=== PATIENT | female | born 1970 | race Caucasian/White ===

== ENCOUNTER → 2017-12-28 | Outpatient (CLI) | payer BC ==
--- NOTE | 2017-12-28 10:59 | Diagnostic Imaging Report ---
PROCEDURE: CT urinary tract, rule out kidney stone. TECHNIQUE: Multiple contiguous axial images were obtained through the abdomen and pelvis without the use of intravenous contrast. INDICATION: Left flank pain, urinary tract infection. COMPARISON: None. FINDINGS: There are tiny subcentimeter nodules in both lung bases. At least 2 on the right and one on the left. Recommend full CT chest on a nonemergent basis. There is a benign adenoma in the right adrenal gland measuring approximately 7 mm. Small hiatal hernia is present. Multiple gallstones are seen without cholecystitis. Both kidneys have a normal appearance. There is no hydronephrosis or renal calculi. The spleen, liver, pancreas, left adrenal glands, vascular structures and bowel are normal. The uterus is surgically absent. There is no inflammatory process. Distal ureters and urinary bladder are normal. Osseous structures are age-appropriate. IMPRESSION: 1. No renal calculi or hydronephrosis. 2. Cholelithiasis without cholecystitis. 3. Tiny subcentimeter pulmonary nodules. Recommend nonemergent CT chest. 4. Hiatal hernia. 5. Surgically absent uterus. Dictated by: Dictated on workstation # [id number]
== END ==
LOC: RAD 10:04
PROVIDERS: ATTEND Urology
DX: N39.0 Urinary tract infection, site not specified (principal); K80.20 Calculus of gallbladder without cholecystitis without obstruction; K44.9 Diaphragmatic hernia without obstruction or gangrene; Z90.710 Acquired absence of both cervix and uterus
CPT/HCPCS: 74176

== ENCOUNTER → 2018-01-07 | Outpatient (CLI) | payer BC ==
[~2018-01-07] MED LIST: CATHETER FLUSH 10 ML SYR IV PRN; IOHEXOL 350 MG/ML 100 ML (OMNIPAQUE 350) VIAL IV ONE; NS 100 ML (IVPB) BAG IV ONE
--- NOTE | 2018-01-07 11:46 | Diagnostic Imaging Report ---
PROCEDURE: CT chest with contrast only. TECHNIQUE: Multiple contiguous axial images were obtained through the chest after administration of intravenous contrast. INDICATION: Pulmonary nodules, followup. Comparison is made with recent CT abdomen and pelvis from 12/28/2017. No axillary lymphadenopathy is detected. No hilar or mediastinal lymphadenopathy is identified. No pericardial or pleural fluid is detected. Parenchymal violation does show a tiny subpleural nodule posterolateral right lower lobe measuring 3 mm, image 32. Second nodule just inferior to this in the subpleural location measures 6 mm. There are 2 tiny nodules posterior lateral left lower lobe image 40 largest 4 mm in size. No other pulmonary nodules are identified. Impression: Tiny bilateral lower lobe pulmonary nodules, indeterminate. Followup in 4-6 months could be performed to confirm stability. Dictated by: Dictated on workstation # [id number]
== END ==
LOC: RAD 09:55
PROVIDERS: ATTEND Urology
DX: R91.8 Other nonspecific abnormal finding of lung field (principal)
CPT/HCPCS: 71260

== ENCOUNTER 2018-01-15 06:04 | Outpatient (CLI) | payer BC ==
[~2018-01-15] VITALS: Ht 170.2 cm; Wt 126.1 kg
[2018-01-15] MEDS ORDERED: OMEP20TA33 PO (12:18)
[2018-01-15] MEDS ORDERED: ZOLP5TAB7 PO (12:18)
[2018-01-15] MEDS ORDERED: CETI10TA20 PO (12:18)
[2018-01-17] MEDS ORDERED: DOCU-143 PO (11:52)
[2018-01-17] MEDS ORDERED: ACHD5005 PO (11:52)
== END 2018-01-15 13:00 ==
LOC: PREOP 06:04
PROVIDERS: ATTEND Surgery
DX: Z01.818 Encounter for other preprocedural examination (principal); K80.20 Calculus of gallbladder without cholecystitis without obstruction

== ENCOUNTER 2018-01-17 08:04 | Day surgery (SDC) | payer BC ==
[~2018-01-17] VITALS: Ht 170.2 cm; Wt 126.1 kg
[~2018-01-17 08:04] MED LIST changes: -CATHETER FLUSH 10 ML SYR IV PRN; +CETI10TA20 PO; -IOHEXOL 350 MG/ML 100 ML (OMNIPAQUE 350) VIAL IV ONE; -NS 100 ML (IVPB) BAG IV ONE; +OMEP20TA33 PO; +ZOLP5TAB7 PO
--- NOTE | 2018-01-17 08:20 | Progress Note-Pre Operative ---
Pre-Operative Progress Note H&P Reviewed The H&P was reviewed, patient examined and no changes noted. Date Seen by Provider: Jan 17, 2018 Time Seen by Provider: 08:19 Date H&P Reviewed: Jan 17, 2018 Time H&P Reviewed: 08:20 Pre-Operative Diagnosis: symptomatic cholelithiasis MIRA MENDEZ DO Jan 17, 2018 08:20
[2018-01-17] MEDS ORDERED: CATHETER FLUSH 10 ML SYR IV PRN (08:30)
[2018-01-17] MEDS ORDERED: ceFAZolin 2 GM/50 ML PRE-MIX IVPB IV ONE (08:30)
[2018-01-17] MEDS ORDERED: LACTATED RINGERS 1,000 ML IV PRN (08:36)
[2018-01-17 08:38] LABS: BASOPHILS % (AUTO) 1 % (0-10); EOSINOPHILS # (AUTO) 0.2 10^3/uL (0.0-0.3); EOSINOPHILS % (AUTO) 2 % (0-10); HEMATOCRIT 43 % (35-52); HEMOGLOBIN 14.7 G/DL (11.5-16.0); LYMPHOCYTES # (AUTO) 1.9 X 10^3 (1.0-4.0); LYMPHOCYTES % (AUTO) 30 % (12-44); MEAN CORPUSCULAR HEMOGLOBIN 29 PG (25-34); MEAN CORPUSCULAR HGB CONC 34 G/DL (32-36); MEAN CORPUSCULAR VOLUME 86 FL (80-99); MEAN PLATELET VOLUME 10.2 FL (7.4-10.4); MONOCYTES # (AUTO) 0.5 X 10^3 (0.0-1.0); MONOCYTES % (AUTO) 8 % (0-12); NEUTROPHILS # (AUTO) 3.9 X 10^3 (1.8-7.8); NEUTROPHILS % (AUTO) 60 % (42-75); PLATELET COUNT 346 10^3/uL (130-400); RED BLOOD COUNT 5.05 10^6/uL (4.35-5.85); RED CELL DISTRIBUTION WIDTH 13.4 % (10.0-14.5); WHITE BLOOD COUNT 6.6 10^3/uL (4.3-11.0)
[2018-01-17 08:39] VITALS: BP 141/94
[2018-01-17] MEDS ORDERED: ceFAZolin 2 GM IV Premixed 50 ML IV ONE (08:45)
[2018-01-17] MEDS ORDERED: fentaNYL INJECTION 100 MCG/2 ML AMP ONE ×2 (09:25→11:13)
[2018-01-17] MEDS ORDERED: MIDAZOLAM 2 MG/2 ML (VERSED) VIAL ONE (09:25)
[2018-01-17] MEDS ORDERED: FAMOTIDINE 20MG/2ML IV (PEPCID) ONE (09:29)
[2018-01-17] MEDS ORDERED: SEVOFLURANE (ULTANE) 15 ML INHAL SOLN ONE ×6 (09:46→11:53)
[2018-01-17] MEDS ORDERED: ONDANSETRON 4 MG/2 ML (SDV) Z0FRAN ONE (09:46)
[2018-01-17] MEDS ORDERED: LIDOCAINE PF 2% 5 ML (XYLOCAINE) VIAL ONE (09:46)
[2018-01-17] MEDS ORDERED: proPOfol 200 MG/20 ML (DIPRIVAN) VIAL IV ONE (09:46)
[2018-01-17] MEDS ORDERED: ROCURONIUM 50 MG/5 ML (ZEMURON) VIAL IV ONE (09:46)
[2018-01-17] MEDS ORDERED: DEXAMETHASONE 10 MG/ML (DECADRON) 1 ML VIAL ONE (09:46)
[2018-01-17] MEDS ORDERED: BUPIVACAINE 0.5% 30 ML (SENSORCAINE) VIAL ONE (10:00)
[2018-01-17] MEDS ORDERED: LIDOCAINE 1% INJ 20 ML (XYLOCAINE) VIAL ONE (10:00)
--- NOTE | 2018-01-17 11:51 | Progress Note-Post Operative ---
Post-Operative Progess Note Surgeon (s)/Paint Striping Machine Operator (s) Surgeon MIRA MENDEZ DO Paint Striping Machine Operator: Dr. Morrissey Pre-Operative Diagnosis symptomatic cholelithiasis Post-Operative Diagnosis same Procedure & Operative Findings Date of Procedure 01/17/18 Procedure Performed/Findings lap noe c ioc Anesthesia Type gen Estimated Blood Loss Estimated blood loss (mL): min Specimens/Packing Specimens Removed gallbladder MIRA MENDEZ DO Jan 17, 2018 11:51
[2018-01-17] MEDS ORDERED: DOCU-143 PO (11:52)
[2018-01-17] MEDS ORDERED: ACHD5005 PO (11:52)
--- NOTE | 2018-01-17 11:53 | Discharge Inst-Simple/Standard ---
Discharge Inst-Standard Discharge Medications New, Converted or Re-Newed RX: RX on Chart Patient Instructions/Follow Up Plan of Care/Instructions/FU: 2 weeks Pura Activity as Tolerated: No Discharge Diet: Regular Diet Other Inst to Patient Follow up Appt: Make appointment for 2 weeks. Instructions: No lifting greater than 10 pounds. No strenuous activity. May shower in 24 hours, no tub bath or soaking. Use incentive spirometer at home as directed. No Smoking Skin/Wound Care: You have special glue over incisions it will fall off on its own. Symptoms to Report: Appetite Changes, Extremity Discoloration, Numbness/Tingling, Swelling Increased , Bleeding Excessive, Eyesight Changes, Pain Increased, Urine Color Change, Constipation(Persistent), Fever over 101 degree F, Pain/Pressure in chest, Urinating Difficulty, Cough Up/Vomit Blood, Heart Beat Irreg/Pounding, Pain/ Pressure in jaw, Vaginal Bleeding Increase, Cramps in feet or legs, Lightheadedness, Pain/Pressure in shoulder, Diarrhea(Persistent), Memory Changes Suddenly, Questions/Concerns, Weight gain consecutive days, Dizziness/ Fainting, Nausea/Vomiting, Shortness of Breath, Weight gain over 2 pounds. If eyes or skin turn yellow notify physician. If questions or concerns contact your physician Or seek help at emergency department. MIRA MENDEZ DO Jan 17, 2018 11:53
[2018-01-17] MEDS ORDERED: HYDROcodone/APAP 5 MG/325 MG (LORTAB) TAB PO PRN (12:00)
--- NOTE | 2018-01-17 12:13 | Diagnostic Imaging Report ---
INDICATION: Laparoscopic cholecystectomy with intraoperative cholangiogram. PROCEDURE: Fluoroscopy was provided in the OR during performance of an intraoperative cholangiogram. 10 seconds of fluoroscopic time was utilized. Images demonstrate contrast being injected via the cystic duct remnant. Intrahepatic and extrahepatic bile ducts are normal caliber. No filling defects are seen to suggest retained stone. There is normal passage of contrast into the duodenum. IMPRESSION: Fluoroscopy for intraoperative cholangiogram. Dictated by: Dictated on workstation # [id number]
[2018-01-17] MEDS ORDERED: NEOSTIGMINE (BLOXIVERZ ) 1 MG/1ML 10 ML VIAL ONE (12:23)
[2018-01-17] MEDS ORDERED: GLYCOPYRROLATE 0.2 MG/ML (ROBINUL) 2 ML VIAL ONE (12:23)
[2018-01-17] MEDS ORDERED: MEPERIDINE (DEMEROL) INJ 50 MG/ML IVP PRN (12:30)
[2018-01-17] MEDS ORDERED: ONDANSETRON 4 MG/2 ML (SDV) Z0FRAN IVP PRN (12:30)
[2018-01-17] MEDS: morphine INJ 10 MG/ML 1ML (SYR OR VIAL) IVP PRN ×3 (12:40→12:50)
[2018-01-17 13:20] VITALS: BP 113/74
--- NOTE | 2018-01-17 13:44 | Anesthesia-General Post-Op ---
General Patient Condition Mental Status/LOC: Same as Preop Cardiovascular: Satisfactory Nausea/Vomiting: Absent Respiratory: Satisfactory Pain: Controlled Complications: Absent Post Op Complications Complications None Follow Up Care/Instructions Patient Instructions None needed. Anesthesia/Patient Condition Patient Condition Patient is doing well, no complaints, stable vital signs, no apparent adverse anesthesia problems. No complications reported per nursing. GUERLINE MONCADA CRNA Jan 17, 2018 13:44
[2018-01-17 13:50] VITALS: BP 106/72
[2018-01-17 14:20] VITALS: BP 129/86
--- NOTE | 2018-01-18 00:50 | OPERATIVE REPORT ---
DATE OF SERVICE: 01/17/2018 PREOPERATIVE DIAGNOSIS: Symptomatic cholelithiasis. POSTOPERATIVE DIAGNOSIS: Symptomatic cholelithiasis. PROCEDURE: Laparoscopic cholecystectomy with intraoperative cholangiogram. SURGEON: Mira Neves DO. SKIDDER DRIVER: José Miguel Morrissey DO, assisted in retraction, dissection and closure. ESTIMATED BLOOD LOSS: Minimal. ANESTHESIA: General. SPECIMEN: Gallbladder. INDICATIONS: The patient is a 47-year-old female who has been having abdominal pain and workup demonstrating cholelithiasis. She understands risks and benefits of procedure and wished to proceed with procedure. Consent was on chart. DESCRIPTION OF PROCEDURE: The patient was taken to the operating suite. She was prepped and draped in sterile fashion. Surgical pause was performed. Ladonna technique was used to enter the abdomen just above the umbilicus. Once entered, 0 Vicryl was placed in a krniyr-kr-bsmcu fashion on the fascia for later closure. The balloon trocar was inserted in the abdomen and pneumoperitoneum was achieved. Under direct visualization of the laparoscope, a 5 mm trocar was then placed in the subxiphoid region and two 5 mm trocars were placed in the right upper quadrant. The gallbladder was grasped and elevated. There were some adhesions to the gallbladder, which were then bluntly taken down also with [place]. The cystic duct and cystic artery were then dissected out. Clips were placed on the proximal and distal portion of the cystic artery. Clips were placed on the distal portion of the cystic duct. The duct was then partially transected. The arrow catheter was inserted into the duct and cholangiogram was performed. There were no filling defects. Contrast made its way into the duodenum without difficulty. The catheter was removed. Clips were placed on the proximal portion of the cystic duct and the duct and the artery were then transected completely. Hook cautery was used to dissect the gallbladder from the gallbladder fossa achieving hemostasis. A small hole was made in the gallbladder, which did leak some bile. The gallbladder was placed in an Endobag and removed through the 12 mm trocar site. Copious amount of irrigation was used to irrigate the abdomen. Hemostasis was achieved. The abdomen was then desufflated and the trocars were removed. The 0 Vicryl placed on the fascia at the 12 mm trocar site was then closed. The skin was then closed using 4-0 Monocryl in a subcuticular fashion. A SwiftSet was placed over the incisions after they were washed and dried. The patient tolerated the procedure well without any complications. She was taken to the recovery room in stable condition. Job ID: [id number] DocumentID: [id number] Dictated Date: 01/17/2018 16:11:29 Can Sorter Date: 01/18/2018 00:50:26 Dictated By: MIRA NEVES DO
== END 2018-01-17 14:40 | disposition home or self-care (01) ==
LOC: SDC 08:04
PROVIDERS: ATTEND Surgery
DX: K80.10 Calculus of gallbladder with chronic cholecystitis without obstruction (principal); G47.33 Obstructive sleep apnea (adult) (pediatric); K21.9 Gastro-esophageal reflux disease without esophagitis; E66.01 Morbid (severe) obesity due to excess calories; Z68.41 Body mass index [BMI] 40.0-44.9, adult; Z79.899 Other long term (current) drug therapy; Z87.891 Personal history of nicotine dependence
CPT/HCPCS: 36415; 84703; 85025; 87081; 88304; 94664

== ENCOUNTER → 2019-01-14 | Outpatient (CLI) | payer BC ==
[~2019-01-14] MED LIST changes: +ACHD5005 PO; +DOCU-143 PO; +IOHEXOL 350 MG/ML 100 ML (OMNIPAQUE 350) VIAL IV ONE; +NS 100 ML (IVPB) BAG IV ONE; +RECEIVED CONTRAST (Hold Metformin) IV SCH
--- NOTE | 2019-01-14 08:20 | Diagnostic Imaging Report ---
PROCEDURE: CT chest with contrast only. TECHNIQUE: Multiple contiguous axial images were obtained through the chest after administration of intravenous contrast. INDICATION: Pulmonary nodule. Comparison made with prior examination 01/07/2018. FINDINGS: There is unchanged 3.2 mm faint nodule in the right lung base. There is also an unchanged 4 mm nodule in the left lung base. No new pulmonary nodules, masses or infiltrates are appreciated. No pleural or pericardial fluid. There is no pneumothorax. There is no pathologically enlarged adenopathy in the chest. The thoracic aorta is normal in caliber. Heart size is normal. The visualized intra-abdominal structures are unremarkable apart from stable small right adrenal nodule. IMPRESSION: Stable bilateral lower lobe pulmonary nodules. Additional one year followup is recommended to ensure two-year stability. Unchanged right adrenal nodule. Suggestion of a thyroid nodule. This could be better evaluated with thyroid ultrasound if clinically warranted. Dictated by: Dictated on workstation # [id number]
== END ==
LOC: RAD 07:22
PROVIDERS: ATTEND Family Medicine
DX: E27.8 Other specified disorders of adrenal gland (principal); R91.8 Other nonspecific abnormal finding of lung field
CPT/HCPCS: 71260

== ENCOUNTER → 2019-01-20 | Outpatient (CLI) | payer BC ==
[~2019-01-20] MED LIST changes: -IOHEXOL 350 MG/ML 100 ML (OMNIPAQUE 350) VIAL IV ONE; -NS 100 ML (IVPB) BAG IV ONE; -RECEIVED CONTRAST (Hold Metformin) IV SCH
--- NOTE | 2019-01-20 09:55 | Diagnostic Imaging Report ---
INDICATION: Thyroid nodule. TECHNIQUE: Grayscale sonographic images of the thyroid gland. CORRELATION STUDY: None. FINDINGS: RIGHT LOBE: 5.0 x 1.9 x 1.9 cm. There is normal echotexture about the right lobe. LEFT LOBE: 5.2 x 1.6 x 1.7 cm. There are two nodules about the left lobe. One near the isthmus is predominantly slightly hyperechoic with a small hypoechoic halo. This measures 13 x 9 x 8 mm. No internal vascularity with minimal peripheral vascular blood flow. At the superior aspect, there is a very small slightly heterogeneous nodule measuring 7 x 4 x 3 mm. The isthmus appears unremarkable. IMPRESSION: 1. Borderline enlarged thyroid gland. 2. There are two small nodules about the left lobe. While currently nonspecific, these currently favor lower suspicion nodules. 3. Followup ultrasound imaging in approximately 6 months would be recommended for reassessment. (Normal gland size: 4-5 x 2 x 2 cm) Dictated by: Dictated on workstation # [id number]
== END ==
LOC: RAD 07:34
PROVIDERS: ATTEND Family Medicine
DX: E04.2 Nontoxic multinodular goiter (principal)
CPT/HCPCS: 76536

== ENCOUNTER → 2019-03-13 | Outpatient (CLI) | payer BC ==
[~2019-03-13] VITALS: Ht 172.7 cm; Wt 131.1 kg
[~2019-03-13] MED LIST changes: +BUSP10TA95 PO; +CITA40TA11 PO; +DIPH25CA79 PO; +HYDR25TA4 PO; +LIDOCAINE 1% INJ 20 ML 20 ML VIAL INJ ONE
--- NOTE | 2019-03-13 17:36 | Diagnostic Imaging Report ---
INDICATION: Left breast mass. Patient is status post ultrasound-guided biopsy. FINDINGS: 2D CC and ML views of the left breast were obtained status post biopsy. There is a marker clip located within the density in the upper and outer aspects of the left breast anterior depth. IMPRESSION: Left breast biopsy with marker clip located in the appropriate position. Biopsy results are currently pending. Dictated by: Dictated on workstation # [id number]
--- NOTE | 2019-03-13 21:55 | Diagnostic Imaging Report ---
INDICATION: Left breast mass. Patient presents for ultrasound guided core biopsy. Patient was brought to the procedure room placed on the bed in the supine position. Ultrasound imaging over the left breast was performed to evaluate appropriate entry site. There is a septated cystic-appearing mass at the 2 o'clock location of the left breast, approximately 2 cm from the nipple. Left breast was then prepped and draped in usual sterile fashion. Small amount of 1% lidocaine was utilized for local anesthesia. A total of 3 core biopsies through the septated cystic mass at 2 o'clock location was performed utilizing 14-gauge Achieve needle. A marker clip was then deployed. Hemostasis was obtained using manual compression. Patient tolerated the procedure well and left department in stable condition. IMPRESSION: Successful ultrasound-guided core biopsy of septated cystic mass 2 o'clock location of the left breast, 2 cm from the nipple. Pathology results are currently pending. Dictated by: Dictated on workstation # [id number]
== END ==
LOC: RAD 08:31
PROVIDERS: ATTEND Surgery
DX: N60.02 Solitary cyst of left breast (principal); N62 Hypertrophy of breast
CPT/HCPCS: 19083; 88305

== ENCOUNTER 2019-03-26 06:25 | Outpatient (CLI) | payer BC ==
[~2019-03-26] VITALS: Ht 172.7 cm; Wt 131.1 kg
[~2019-03-26 06:25] MED LIST changes: -BUSP10TA95 PO; -CITA40TA11 PO; -DIPH25CA79 PO; -HYDR25TA4 PO; -LIDOCAINE 1% INJ 20 ML 20 ML VIAL INJ ONE
[2019-03-26] MEDS ORDERED: DIPH25CA79 PO (11:49)
[2019-03-26] MEDS ORDERED: CITA40TA11 PO (12:01)
[2019-03-26] MEDS ORDERED: HYDR25TA4 PO (12:01)
[2019-03-26] MEDS ORDERED: BUSP10TA95 PO (12:01)
== END 2019-03-26 12:05 | disposition home or self-care (01) ==
LOC: PREOP 06:25
PROVIDERS: ATTEND Surgery
DX: Z01.818 Encounter for other preprocedural examination (principal)

== ENCOUNTER 2019-04-03 08:44 | Day surgery (SDC) | payer BC ==
[~2019-04-03] VITALS: Ht 172.7 cm; Wt 131.1 kg
[2019-04-03] VITALS (12 sets, daily range): BP systolic 115–141; BP diastolic 64–95
[~2019-04-03 08:44] MED LIST changes: +BUSP10TA95 PO; +CITA40TA11 PO; +DIPH25CA79 PO; +HYDR25TA4 PO
[2019-04-03] MEDS ORDERED: ceFAZolin 2 GM/50 ML NS 50 ML IV ONE (09:00)
[2019-04-03] MEDS: LACTATED RINGERS 1,000 ML IV PRN ×2 (09:10→12:31)
[2019-04-03] MEDS ORDERED: LIDOCAINE 1% INJ 20 ML 20 ML VIAL INJ ONE (09:15)
[2019-04-03] MEDS ORDERED: SCOPOLAMINE 1.5 MG (TRANSDERM-SCOP) PATCH TOP ONE (10:15)
[2019-04-03] MEDS ORDERED: FAMOTIDINE 20MG/2ML IV (PEPCID) IV ONE (10:15)
[2019-04-03] MEDS ORDERED: ONDANSETRON 4 MG/2 ML (SDV) Z0FRAN IV ONE (10:15)
--- OUTSIDE RECORDS SUMMARY | 2019-04-03 10:51 | XMS REPORT | Clinical Summary ---
Author Author Admin, VIC Organization [facility] Address Unknown Phone Allergies, Adverse Reactions, Alerts Allergy Name Reaction Description Start Date Severity Status Provider NKDA Critical Active Eugenio HERNANDEZ Conditions or Problems Problem Name Problem Code Onset Date Status Entry Date Provider Comment Standard Description Annotate FH COLON CANCER V16.0 Active Korey Sanchez MD Family history of malignant neoplasm of gastrointestinal tract DIABETES V18.0 Active Korey Sanchez MD Family history of diabetes mellitus RASH AND OTHER NONSPECIFIC SKIN ERUPTION 782.1 Active Korey Sanchez MD Rash and other nonspecific skin eruption SINUSITIS, ACUTE 461.9 Active Karen Castro APRN Acute sinusitis, unspecified TOBACCO USE DISORDER/SMOKER-SMOKING CESSATION DISCUSSED 305.1 Active Karen Castro APRN Tobacco use disorder ANXIETY 300.00 Active Karen Castro APRN Anxiety state, unspecified PREVENTIVE HEALTH CARE V70.0 Active Karen Castro APRN Routine general medical examination at a health care facility BREAST MASS, LEFT 611.72 Active [place] Gilman GEAR GRINDER Lump or mass in breast SKIN LESION 709.9 Active Karen Castro APRN Unspecified disorder of skin and subcutaneous tissue Health screening V70.0 Active Eugenio HERNANDEZ Routine general medical examination at a health care facility Medication List Medication Instructions Start Date Stop Date Generic Name NDC Status Provider Patient Instruction MULTIVITAMINS TABS 1 pill by mouth daily MULTIPLE VITAMIN 98106735090 No Longer Active Eugenio HERNANDEZ Active OMEPRAZOLE 20 MG CPDR 1 qd OMEPRAZOLE 45840185316 Active Rowdy Crum MD Active EXCEDRIN MIGRAINE 250-250-65 MG TABS 1 tab po prn ASPIRIN-ACETAMINOPHEN -CAFFEINE 65124298047 Active Karen Castro SWIMMING POOL INSTALLER Active ZYRTEC ALLERGY 10 MG CAPS 1 po qd CETIRIZINE HCL 72693612881 Active S Castro SWIMMING POOL INSTALLER Active BACTRIM DS 800-160 MG TAB 1 tab by mouth twice daily TRIMETHOPRIM-SULFAMETHOXAZOLE 98593823702 No Longer Active Karen Castro SWIMMING POOL INSTALLER Active ALPRAZOLAM 0.5 MG TAB 1/2 to one tab q 8 hr prn anxiety ALPRAZOLAM 91566516870 No Longer Active S Matthew SWIMMING POOL INSTALLER Active PROMETHAZINE-CODEINE 6.25-10 MG/5ML SYRP 1 tsp by mouth every 8 hours prn cough PROMETHAZINE-CODEINE 30682448500 No Longer Active Karen Castro SWIMMING POOL INSTALLER Active BACTRIM DS 800-160 MG TAB 1 tab by mouth twice daily TRIMETHOPRIM-SULFAMETHOXAZOLE 81489123241 No Longer Active S Matthew SWIMMING POOL INSTALLER Active CHANTIX STARTING MONTH ROGER 0.5 MG X 11 & 1 MG X 42 TABS 0.5mg daily for 3 days , then 0.5mg BID for 4 days, then 1mg BID VARENICLINE TARTRATE 00669263937 No Longer Active S Castro SWIMMING POOL INSTALLER Active TRIAMCINOLONE ACETONIDE 0.1 % CREA apply twice daily to affected area for two weeks TRIAMCINOLONE ACETONIDE 45125464005 No Longer Active S Castro SWIMMING POOL INSTALLER Active TRIAMCINOLONE ACETONIDE 0.1 % CREA apply twice daily to affected area for two weeks TRIAMCINOLONE ACETONIDE 0.1 % CREA [id number] TRIAMCINOLONE ACETONIDE Inactive CHANTIX STARTING MONTH ROGER 0.5 MG X 11 & 1 MG X 42 TABS 0.5mg daily for 3 days , then 0.5mg BID for 4 days, then 1mg BID CHANTIX STARTING MONTH ROGER 0.5 MG X 11 & 1 MG X 42 TABS VARENICLINE TARTRATE Inactive BACTRIM DS 800-160 MG TAB 1 tab by mouth twice daily BACTRIM DS 800-160 MG TAB TRIMETHOPRIM-SULFAMETHOXAZOLE Inactive PROMETHAZINE-CODEINE 6.25-10 MG/5ML SYRP 1 tsp by mouth every 8 hours prn cough PROMETHAZINE-CODEINE 6.25-10 MG/5ML SYRP [id number] PROMETHAZINE-CODEINE Inactive ALPRAZOLAM 0.5 MG TAB 1/2 to one tab q 8 hr prn anxiety ALPRAZOLAM 0.5 MG TAB [id number] ALPRAZOLAM Inactive BACTRIM DS 800-160 MG TAB 1 tab by mouth twice daily BACTRIM DS 800-160 MG TAB TRIMETHOPRIM-SULFAMETHOXAZOLE Inactive MULTIVITAMINS TABS 1 pill by mouth daily MULTIVITAMINS TABS MULTIPLE VITAMIN Inactive Immunizations Vaccine Administration Date Value Standard Description TB PPD (tuberculin purified protein derivative), intradermal administration Tubersol Vital Signs Date Name Value Unit Range Description blood pressure, diastolic 78 mm[Hg] BP blevins blood pressure, systolic 145 mm[Hg] BP sys height E&M 68 [in_us] Bdy height pulse rate E&M 90 /min Heart rate temperature E&M 98.7 [degF] Body temperature weight E&M 260.06 [lb_av] Weight Measured blood pressure, diastolic 91 mm[Hg] BP blevins blood pressure, systolic 128 mm[Hg] BP sys height E&M 68 [in_us] Bdy height pulse rate E&M 88 /min Heart rate temperature E&M 97.9 [degF] Body temperature weight E&M 252 [lb_av] Weight Measured Diagnostic Results Date Name Value Unit Range Description Lab Report: CBC W/DIFF, MICROALBUMIN - Chemistry albumin/creatinine ratio, urine < 30 mg/g mg/g{creat} 0-29 Lab Report: CBC W/DIFF, MICROALBUMIN - Hematology leukocyte count, blood 7.4 10^3/MM^3 10*3/mm3 4.6-10.2 neutrophils as percent of blood leukocytes 52.5 % 42.2-75.2 monocytes as percent of blood leukocytes 6.1 % 1.7-9.3 lymphocytes as percent of blood leukocytes 37.2 % 20.5-51.1 erythrocyte (RBC) count 5.11 10^6/MM^3 10*6/mm3 4.04-5.48 hemoglobin, blood 15.5 g/dL 12.0-16.0 hematocrit, blood 45.7 % 36.0-46.0 mean corpuscular volume, RBC 89 fL 80-97 mean corpuscular hemoglobin, RBC 30.3 pg 27.0-31.2 mean corpuscular hemoglobin concentration, RBC 33.9 G/DL % 31.8- 35.4 red blood cell distribution width 14.0 % 11.6-14.8 platelet count 397 10^3/MM^3 10*3/mm3 142-424 Lab Report: CBC W/DIFF, MICROALBUMIN - Lab microalbumin, urine 30 0-19 Lab Report: Comp. Metabolic Panel, Lipid Panel, Thyroid Stimulating Horm ... - Chemistry protein, total urine random Negative mg/dL Negative RBC, urine, dipstick Negative Negative sodium, serum 141 mmol/L 860-174 8097/03/14 potassium, serum 4.8 mmol/L 3.5-5.2 chloride, serum 101 mmol/L 98-107 carbon dioxide, venous blood 32.9 mmol/L 21.0-32.0 blood glucose 100 mg/dL 65-110 urea nitrogen, blood 18 mg/dL 7-18 creatinine, serum 1.10 mg/dL 0.60-1.30 alanine aminotransferase (SGPT), serum 39 U/L 12-78 aspartate aminotransferase (SGOT), serum 24 U/L 15-37 alkaline phosphatase, serum 120 U/L 50-136 calcium, serum 10.0 mg/dL 8.5-10.1 bilirubin, serum, total 1.10 mg/dL 0.00-1.00 cholesterol, serum 239 mg/dL 113-154 7285/03/14 triglyceride, serum, fasting 189 mg/dL 30-200 HDL cholesterol, serum 49 mg/dL 32-96 LDL cholesterol, serum 152 mg/dL 0-130 TSH 3.33 m[iU]/mL 0.36-3.74 thyroxine, serum, free 1.07 ng/dL 0.76-1.46 Lab Report: Comp. Metabolic Panel, Lipid Panel, Thyroid Stimulating Horm ... - Urinalysis urine color Yellow Colorless;Lightyellow;Straw;Yellow appearance, urine SlCloudy Clear specific gravity, urine 1.025 1.000-1.030 pH, urine, semiquantitative 5.5 5.0-8.5 urobilinogen, urine, semiquantitative (dipstick) 0.2 Normal leukocyte esterase, urine, by dipstick 2+ Negative nitrite, urine, semiquantitative Negative Negative glucose, urine, semiquantitative Negative Negative ketones, urine, by test strip Negative Negative bilirubin, urine Negative Negative Lab Report: T3, TOTAL - Chemistry triiodothyronine, serum 125 ng/dL 76-181 Encounters Code Encounter Date Provider Facility CPT-03167 Level 3 Est. Patient 17:41:56 CDT Eugenio HERNANDEZ [facility] CPT-01748 Level 3 Est. Patient 16:43:12 CDT Karen Castro [facility] CPT-03253 Level 3 Est. Patient 14:06:28 CDT Karen Castro [facility] CPT-21246 Level 3 Est. Patient 14:24:49 GOLD MINER BLASTING Karen Castro [facility] CPT-96864 Level 3 Est. Patient 13:51:23 CDT Karen Castro [facility] CPT-68898 Level 3 Est. Patient 15:22:39 GOLD MINER BLASTING Karen Smith Castro [facility] CPT-71315 Level 3 Est. Patient 16:10:58 GOLD MINER BLASTING Korey Sanchez MD [facility] Procedures Code Procedure Name Date Entry Date Standard Description CPT-90364 Venipuncture Draw Fee 17:04:16 CDT CPT-13952 Postop F/U Visit 14:49:17 CDT CPT-000 Give PPD 16:43:12 CDT CPT-OV Office Visit 16:25:32 CDT CPT-30236 TB Tubersol 15:46:06 CDT
--- OUTSIDE RECORDS SUMMARY | 2019-04-03 10:51 | XMS REPORT | Clinical Summary ---
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 CABLE EQUIPMENT Lump or mass in breast SKIN LESION 709.9 Active Karen Castro APRN Unspecified disorder of skin and subcutaneous tissue Health screening V70.0 Active Eugenio HERNANDEZ Routine general medical examination at a health care facility Medication List Medication Instructions Start Date Stop Date Generic Name NDC Status Provider Patient Instruction MULTIVITAMINS TABS 1 pill by mouth daily MULTIPLE VITAMIN 11257475161 No Longer Active Eugenio HERNANDEZ Active OMEPRAZOLE 20 MG CPDR 1 qd OMEPRAZOLE 83670780107 Active Rowdy Crum MD Active EXCEDRIN MIGRAINE 250-250-65 MG TABS 1 tab po prn ASPIRIN-ACETAMINOPHEN -CAFFEINE 91656915562 Active Karen Castro FOOT DOCTOR Active ZYRTEC ALLERGY 10 MG CAPS 1 po qd CETIRIZINE HCL 49779635409 Active S Castro FOOT DOCTOR Active BACTRIM DS 800-160 MG TAB 1 tab by mouth twice daily TRIMETHOPRIM-SULFAMETHOXAZOLE 43647250146 No Longer Active Karen Castro FOOT DOCTOR Active ALPRAZOLAM 0.5 MG TAB 1/2 to one tab q 8 hr prn anxiety ALPRAZOLAM 49820667405 No Longer Active S Matthew FOOT DOCTOR Active PROMETHAZINE-CODEINE 6.25-10 MG/5ML SYRP 1 tsp by mouth every 8 hours prn cough PROMETHAZINE-CODEINE 44144668467 No Longer Active Karen Castro FOOT DOCTOR Active BACTRIM DS 800-160 MG TAB 1 tab by mouth twice daily TRIMETHOPRIM-SULFAMETHOXAZOLE 43195389617 No Longer Active S Matthew FOOT DOCTOR Active CHANTIX STARTING MONTH ROGER 0.5 MG X 11 & 1 MG X 42 TABS 0.5mg daily for 3 days , then 0.5mg BID for 4 days, then 1mg BID VARENICLINE TARTRATE 26201978771 No Longer Active S Castro FOOT DOCTOR Active TRIAMCINOLONE ACETONIDE 0.1 % CREA apply twice daily to affected area for two weeks TRIAMCINOLONE ACETONIDE 86536728495 No Longer Active S Castro FOOT DOCTOR Active TRIAMCINOLONE ACETONIDE 0.1 % CREA apply twice daily to affected area for two weeks TRIAMCINOLONE ACETONIDE 0.1 % CREA 1123322 TRIAMCINOLONE ACETONIDE Inactive CHANTIX STARTING MONTH ROGER [...] hours prn cough PROMETHAZINE-CODEINE 6.25-10 MG/5ML SYRP 298642 PROMETHAZINE-CODEINE Inactive ALPRAZOLAM 0.5 MG TAB 1/2 to one tab q 8 hr prn anxiety ALPRAZOLAM 0.5 MG TAB 823516 ALPRAZOLAM Inactive BACTRIM DS 800-160 MG TAB [...] dipstick Negative Negative sodium, serum 141 mmol/L 032-752 8787/03/14 potassium, serum 4.8 mmol/L 3.5-5.2 chloride, serum [...] 1.10 mg/dL 0.00-1.00 cholesterol, serum 239 mg/dL 669-758 8388/03/14 triglyceride, serum, fasting 189 mg/dL 30-200 HDL [...] 76-181 Encounters Code Encounter Date Provider Facility CPT-68851 Level 3 Est. Patient 17:41:56 CDT Eugenio HERNANDEZ [facility] CPT-74096 Level 3 Est. Patient 16:43:12 CDT Karen Castro [facility] CPT-36783 Level 3 Est. Patient 14:06:28 CDT Karen Castro [facility] CPT-55732 Level 3 Est. Patient 14:24:49 REVENUE INTEGRITY ANALYST Karen Castro [facility] CPT-87276 Level 3 Est. Patient 13:51:23 CDT Karen Castro [facility] CPT-48625 Level 3 Est. Patient 15:22:39 REVENUE INTEGRITY ANALYST Karen Smith Castro [facility] CPT-58268 Level 3 Est. Patient 16:10:58 REVENUE INTEGRITY ANALYST Korey Sanchez MD [facility] Procedures Code Procedure Name Date Entry Date Standard Description CPT-82241 Venipuncture Draw Fee 17:04:16 CDT CPT-84642 Postop F/U Visit 14:49:17 CDT CPT-000 Give PPD 16:43:12 CDT CPT-OV Office Visit 16:25:32 CDT CPT-02498 TB Tubersol 15:46:06 CDT
--- OUTSIDE RECORDS SUMMARY | 2019-04-03 10:52 | XMS REPORT | Clinical Summary ---
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 Lump or mass in breast SKIN LESION 709.9 Active Karen Castro APRN Unspecified disorder of skin and subcutaneous tissue Health screening V70.0 Active Eugenio HERNANDEZ Routine general medical examination at a health care facility Medication List Medication Instructions Start Date Stop Date Generic Name NDC Status Provider Patient Instruction MULTIVITAMINS TABS 1 pill by mouth daily MULTIPLE VITAMIN [id number] No Longer Active Eugenio HERNANDEZ Active OMEPRAZOLE 20 MG CPDR 1 qd OMEPRAZOLE 52487330466 Active Rowdy Crum MD Active EXCEDRIN MIGRAINE 250-250-65 MG TABS 1 tab po prn ASPIRIN-ACETAMINOPHEN -CAFFEINE 60425436047 Active Karen Castro CASHIER CHECKER Active ZYRTEC ALLERGY 10 MG CAPS 1 po qd CETIRIZINE HCL 03540973519 Active S Castro CASHIER CHECKER Active BACTRIM DS 800-160 MG TAB 1 tab by mouth twice daily TRIMETHOPRIM-SULFAMETHOXAZOLE 10570671399 No Longer Active Karen Castro CASHIER CHECKER Active ALPRAZOLAM 0.5 MG TAB 1/2 to one tab q 8 hr prn anxiety ALPRAZOLAM 87787602719 No Longer Active S Matthew CASHIER CHECKER Active PROMETHAZINE-CODEINE 6.25-10 MG/5ML SYRP 1 tsp by mouth every 8 hours prn cough PROMETHAZINE-CODEINE 34820061810 No Longer Active Karen Castro CASHIER CHECKER Active BACTRIM DS 800-160 MG TAB 1 tab by mouth twice daily TRIMETHOPRIM-SULFAMETHOXAZOLE 08111028205 No Longer Active S Matthew CASHIER CHECKER Active CHANTIX STARTING MONTH ROGER 0.5 MG X 11 & 1 MG X 42 TABS 0.5mg daily for 3 days , then 0.5mg BID for 4 days, then 1mg BID VARENICLINE TARTRATE 50318911749 No Longer Active S Castro CASHIER CHECKER Active TRIAMCINOLONE ACETONIDE 0.1 % CREA apply twice daily to affected area for two weeks TRIAMCINOLONE ACETONIDE 63040951539 No Longer Active S Castro CASHIER CHECKER Active TRIAMCINOLONE ACETONIDE 0.1 % CREA apply twice daily to affected area for two weeks TRIAMCINOLONE ACETONIDE 0.1 % CREA 9548358 TRIAMCINOLONE ACETONIDE Inactive CHANTIX STARTING MONTH ROGER [...] hours prn cough PROMETHAZINE-CODEINE 6.25-10 MG/5ML SYRP 135584 PROMETHAZINE-CODEINE Inactive ALPRAZOLAM 0.5 MG TAB 1/2 to one tab q 8 hr prn anxiety ALPRAZOLAM 0.5 MG TAB 242589 ALPRAZOLAM Inactive BACTRIM DS 800-160 MG TAB [...] dipstick Negative Negative sodium, serum 141 mmol/L 534-157 4193/03/14 potassium, serum 4.8 mmol/L 3.5-5.2 chloride, serum [...] 1.10 mg/dL 0.00-1.00 cholesterol, serum 239 mg/dL 008-528 3494/03/14 triglyceride, serum, fasting 189 mg/dL 30-200 HDL [...] 76-181 Encounters Code Encounter Date Provider Facility CPT-94918 Level 3 Est. Patient 17:41:56 CDT Eugenio HERNANDEZ [facility] CPT-86282 Level 3 Est. Patient 16:43:12 CDT Karen Castro [facility] CPT-51977 Level 3 Est. Patient 14:06:28 CDT Karen Castro [facility] CPT-04197 Level 3 Est. Patient 14:24:49 PANEL MONITOR Karen Castro [facility] CPT-91254 Level 3 Est. Patient 13:51:23 CDT Karen Castro [facility] CPT-35125 Level 3 Est. Patient 15:22:39 PANEL MONITOR Karen Smith Castro [facility] CPT-92469 Level 3 Est. Patient 16:10:58 PANEL MONITOR Korey Sanchez MD [facility] Procedures Code Procedure Name Date Entry Date Standard Description CPT-13475 Venipuncture Draw Fee 17:04:16 CDT CPT-47661 Postop F/U Visit 14:49:17 CDT CPT-000 Give PPD 16:43:12 CDT CPT-OV Office Visit 16:25:32 CDT CPT-28452 TB Tubersol 15:46:06 CDT
--- OUTSIDE RECORDS SUMMARY | 2019-04-03 10:52 | XMS REPORT | Clinical Summary ---
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 Lump or mass in breast SKIN LESION 709.9 Active Karen Castro APRN Unspecified disorder of skin and subcutaneous tissue Health screening V70.0 Active Eugenio HERNANDEZ Routine general medical examination at a health care facility Medication List Medication Instructions Start Date Stop Date Generic Name NDC Status Provider Patient Instruction MULTIVITAMINS TABS 1 pill by mouth daily MULTIPLE VITAMIN 49696826299 No Longer Active Eugenio HERNANDEZ Active OMEPRAZOLE 20 MG CPDR 1 qd OMEPRAZOLE 47132129530 Active Rowdy Crum MD Active EXCEDRIN MIGRAINE 250-250-65 MG TABS 1 tab po prn ASPIRIN-ACETAMINOPHEN -CAFFEINE 72573066920 Active Karen Castro DOCUMENT PROCESSOR Active ZYRTEC ALLERGY 10 MG CAPS 1 po qd CETIRIZINE HCL 51401083655 Active S Castro DOCUMENT PROCESSOR Active BACTRIM DS 800-160 MG TAB 1 tab by mouth twice daily TRIMETHOPRIM-SULFAMETHOXAZOLE 64369385496 No Longer Active Karen Castro DOCUMENT PROCESSOR Active ALPRAZOLAM 0.5 MG TAB 1/2 to one tab q 8 hr prn anxiety ALPRAZOLAM 06931194888 No Longer Active S Matthew DOCUMENT PROCESSOR Active PROMETHAZINE-CODEINE 6.25-10 MG/5ML SYRP 1 tsp by mouth every 8 hours prn cough PROMETHAZINE-CODEINE 38124498017 No Longer Active Karen Castro DOCUMENT PROCESSOR Active BACTRIM DS 800-160 MG TAB 1 tab by mouth twice daily TRIMETHOPRIM-SULFAMETHOXAZOLE 62319075097 No Longer Active S Matthew DOCUMENT PROCESSOR Active CHANTIX STARTING MONTH ROGER 0.5 MG X 11 & 1 MG X 42 TABS 0.5mg daily for 3 days , then 0.5mg BID for 4 days, then 1mg BID VARENICLINE TARTRATE 49406759733 No Longer Active S Castro DOCUMENT PROCESSOR Active TRIAMCINOLONE ACETONIDE 0.1 % CREA apply twice daily to affected area for two weeks TRIAMCINOLONE ACETONIDE 26638454001 No Longer Active S Castro DOCUMENT PROCESSOR Active TRIAMCINOLONE ACETONIDE 0.1 % CREA apply twice daily to affected area for two weeks TRIAMCINOLONE ACETONIDE 0.1 % CREA 7962796 TRIAMCINOLONE ACETONIDE Inactive CHANTIX STARTING MONTH ROGER [...] hours prn cough PROMETHAZINE-CODEINE 6.25-10 MG/5ML SYRP 650453 PROMETHAZINE-CODEINE Inactive ALPRAZOLAM 0.5 MG TAB 1/2 to one tab q 8 hr prn anxiety ALPRAZOLAM 0.5 MG TAB 027324 ALPRAZOLAM Inactive BACTRIM DS 800-160 MG TAB [...] dipstick Negative Negative sodium, serum 141 mmol/L 822-274 5078/03/14 potassium, serum 4.8 mmol/L 3.5-5.2 chloride, serum [...] 1.10 mg/dL 0.00-1.00 cholesterol, serum 239 mg/dL 033-556 9681/03/14 triglyceride, serum, fasting 189 mg/dL 30-200 HDL [...] 76-181 Encounters Code Encounter Date Provider Facility CPT-16851 Level 3 Est. Patient 17:41:56 CDT Eugenio HERNANDEZ [facility] CPT-85902 Level 3 Est. Patient 16:43:12 CDT Karen Castro [facility] CPT-42491 Level 3 Est. Patient 14:06:28 CDT Karen Castro [facility] CPT-61290 Level 3 Est. Patient 14:24:49 COLD MILL SUPERVISOR Karen Castro [facility] CPT-32999 Level 3 Est. Patient 13:51:23 CDT Karen Castro [facility] CPT-12929 Level 3 Est. Patient 15:22:39 COLD MILL SUPERVISOR Karen Smith Castro [facility] CPT-00810 Level 3 Est. Patient 16:10:58 COLD MILL SUPERVISOR Korey Sanchez MD [facility] Procedures Code Procedure Name Date Entry Date Standard Description CPT-40795 Venipuncture Draw Fee 17:04:16 CDT CPT-09096 Postop F/U Visit 14:49:17 CDT CPT-000 Give PPD 16:43:12 CDT CPT-OV Office Visit 16:25:32 CDT CPT-66494 TB Tubersol 15:46:06 CDT
--- OUTSIDE RECORDS SUMMARY | 2019-04-03 10:52 | XMS REPORT | Clinical Summary ---
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 Lump or mass in breast SKIN LESION 709.9 Active Karen Castro APRN Unspecified disorder of skin and subcutaneous tissue Health screening V70.0 Active Eugenio HERNANDEZ Routine general medical examination at a health care facility Medication List Medication Instructions Start Date Stop Date Generic Name NDC Status Provider Patient Instruction MULTIVITAMINS TABS 1 pill by mouth daily MULTIPLE VITAMIN 09743434045 No Longer Active Eugenio HERNANDEZ Active OMEPRAZOLE 20 MG CPDR 1 qd OMEPRAZOLE 37434997294 Active Rowdy Crum MD Active EXCEDRIN MIGRAINE 250-250-65 MG TABS 1 tab po prn ASPIRIN-ACETAMINOPHEN -CAFFEINE 60278887073 Active Karen Castro INTERN BRAND Active ZYRTEC ALLERGY 10 MG CAPS 1 po qd CETIRIZINE HCL 63490374564 Active S Castro INTERN BRAND Active BACTRIM DS 800-160 MG TAB 1 tab by mouth twice daily TRIMETHOPRIM-SULFAMETHOXAZOLE 10790342301 No Longer Active Karen Castro INTERN BRAND Active ALPRAZOLAM 0.5 MG TAB 1/2 to one tab q 8 hr prn anxiety ALPRAZOLAM 19900507858 No Longer Active S Matthew INTERN BRAND Active PROMETHAZINE-CODEINE 6.25-10 MG/5ML SYRP 1 tsp by mouth every 8 hours prn cough PROMETHAZINE-CODEINE 29353607432 No Longer Active Karen Castro INTERN BRAND Active BACTRIM DS 800-160 MG TAB 1 tab by mouth twice daily TRIMETHOPRIM-SULFAMETHOXAZOLE 43205014891 No Longer Active S Matthew INTERN BRAND Active CHANTIX STARTING MONTH ROGER 0.5 MG X 11 & 1 MG X 42 TABS 0.5mg daily for 3 days , then 0.5mg BID for 4 days, then 1mg BID VARENICLINE TARTRATE 26396224146 No Longer Active S Castro INTERN BRAND Active TRIAMCINOLONE ACETONIDE 0.1 % CREA apply twice daily to affected area for two weeks TRIAMCINOLONE ACETONIDE 63608205006 No Longer Active S Castro INTERN BRAND Active TRIAMCINOLONE ACETONIDE 0.1 % CREA apply twice daily to affected area for two weeks TRIAMCINOLONE ACETONIDE 0.1 % CREA 7186728 TRIAMCINOLONE ACETONIDE Inactive CHANTIX STARTING MONTH ROGER [...] hours prn cough PROMETHAZINE-CODEINE 6.25-10 MG/5ML SYRP 503133 PROMETHAZINE-CODEINE Inactive ALPRAZOLAM 0.5 MG TAB 1/2 to one tab q 8 hr prn anxiety ALPRAZOLAM 0.5 MG TAB 758454 ALPRAZOLAM Inactive BACTRIM DS 800-160 MG TAB [...] dipstick Negative Negative sodium, serum 141 mmol/L 766-223 5224/03/14 potassium, serum 4.8 mmol/L 3.5-5.2 chloride, serum [...] 1.10 mg/dL 0.00-1.00 cholesterol, serum 239 mg/dL 149-194 2461/03/14 triglyceride, serum, fasting 189 mg/dL 30-200 HDL [...] 76-181 Encounters Code Encounter Date Provider Facility CPT-24907 Level 3 Est. Patient 17:41:56 CDT Eugenio HERNANDEZ [facility] CPT-82042 Level 3 Est. Patient 16:43:12 CDT Karen Castro [facility] CPT-18697 Level 3 Est. Patient 14:06:28 CDT Karen Castro [facility] CPT-56142 Level 3 Est. Patient 14:24:49 CRUDE UNIT OPERATOR Karen Castro [facility] CPT-89376 Level 3 Est. Patient 13:51:23 CDT Karen Castro [facility] CPT-17585 Level 3 Est. Patient 15:22:39 CRUDE UNIT OPERATOR Karen Smith Castro [facility] CPT-68440 Level 3 Est. Patient 16:10:58 CRUDE UNIT OPERATOR Korey Sanchez MD [facility] Procedures Code Procedure Name Date Entry Date Standard Description CPT-45824 Venipuncture Draw Fee 17:04:16 CDT CPT-52589 Postop F/U Visit 14:49:17 CDT CPT-000 Give PPD 16:43:12 CDT CPT-OV Office Visit 16:25:32 CDT CPT-45637 TB Tubersol 15:46:06 CDT
--- OUTSIDE RECORDS SUMMARY | 2019-04-03 10:52 | XMS REPORT | Clinical Summary ---
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 Lump or mass in breast SKIN LESION 709.9 Active Karen Castro APRN Unspecified disorder of skin and subcutaneous tissue Health screening V70.0 Active Eugenio HERNANDEZ Routine general medical examination at a health care facility Medication List Medication Instructions Start Date Stop Date Generic Name NDC Status Provider Patient Instruction MULTIVITAMINS TABS 1 pill by mouth daily MULTIPLE VITAMIN 91552432370 No Longer Active Eugenio HERNANDEZ Active OMEPRAZOLE 20 MG CPDR 1 qd OMEPRAZOLE 13523959917 Active Rowdy Crum MD Active EXCEDRIN MIGRAINE 250-250-65 MG TABS 1 tab po prn ASPIRIN-ACETAMINOPHEN -CAFFEINE 62841864345 Active Karen Castro DOGGER Active ZYRTEC ALLERGY 10 MG CAPS 1 po qd CETIRIZINE HCL 50430287729 Active S Castro DOGGER Active BACTRIM DS 800-160 MG TAB 1 tab by mouth twice daily TRIMETHOPRIM-SULFAMETHOXAZOLE 16713579042 No Longer Active Karen Castro DOGGER Active ALPRAZOLAM 0.5 MG TAB 1/2 to one tab q 8 hr prn anxiety ALPRAZOLAM 14127616828 No Longer Active S Matthew DOGGER Active PROMETHAZINE-CODEINE 6.25-10 MG/5ML SYRP 1 tsp by mouth every 8 hours prn cough PROMETHAZINE-CODEINE 23543319676 No Longer Active Karen Castro DOGGER Active BACTRIM DS 800-160 MG TAB 1 tab by mouth twice daily TRIMETHOPRIM-SULFAMETHOXAZOLE 07077586140 No Longer Active S Matthew DOGGER Active CHANTIX STARTING MONTH ROGER 0.5 MG X 11 & 1 MG X 42 TABS 0.5mg daily for 3 days , then 0.5mg BID for 4 days, then 1mg BID VARENICLINE TARTRATE 51170335763 No Longer Active S Castro DOGGER Active TRIAMCINOLONE ACETONIDE 0.1 % CREA apply twice daily to affected area for two weeks TRIAMCINOLONE ACETONIDE 40346172534 No Longer Active S Catsro DOGGER Active TRIAMCINOLONE ACETONIDE 0.1 % CREA apply twice daily to affected area for two weeks TRIAMCINOLONE ACETONIDE 0.1 % CREA 3836179 TRIAMCINOLONE ACETONIDE Inactive CHANTIX STARTING MONTH ROGER [...] hours prn cough PROMETHAZINE-CODEINE 6.25-10 MG/5ML SYRP 893900 PROMETHAZINE-CODEINE Inactive ALPRAZOLAM 0.5 MG TAB 1/2 to one tab q 8 hr prn anxiety ALPRAZOLAM 0.5 MG TAB 257911 ALPRAZOLAM Inactive BACTRIM DS 800-160 MG TAB [...] Measured blood pressure, diastolic 91 mm[Hg] BP blevisn blood pressure, systolic 128 mm[Hg] BP sys [...] dipstick Negative Negative sodium, serum 141 mmol/L 043-072 7170/03/14 potassium, serum 4.8 mmol/L 3.5-5.2 chloride, serum [...] 1.10 mg/dL 0.00-1.00 cholesterol, serum 239 mg/dL 368-062 0122/03/14 triglyceride, serum, fasting 189 mg/dL 30-200 HDL [...] 76-181 Encounters Code Encounter Date Provider Facility CPT-34405 Level 3 Est. Patient 17:41:56 CDT Eugenio HERNANDEZ [facility] CPT-31174 Level 3 Est. Patient 16:43:12 CDT Karen Castro [facility] CPT-46666 Level 3 Est. Patient 14:06:28 CDT Karen Castro [facility] CPT-73369 Level 3 Est. Patient 14:24:49 CASHIERS BUSSERS FOOD RUNNERS Karen Castro [facility] CPT-35785 Level 3 Est. Patient 13:51:23 CDT Karen Castro [facility] CPT-12145 Level 3 Est. Patient 15:22:39 CASHIERS BUSSERS FOOD RUNNERS Karen Smith Castro [facility] CPT-18312 Level 3 Est. Patient 16:10:58 CASHIERS BUSSERS FOOD RUNNERS Korey Sanchez MD [facility] Procedures Code Procedure Name Date Entry Date Standard Description CPT-44234 Venipuncture Draw Fee 17:04:16 CDT CPT-05011 Postop F/U Visit 14:49:17 CDT CPT-000 Give PPD 16:43:12 CDT CPT-OV Office Visit 16:25:32 CDT CPT-99050 TB Tubersol 15:46:06 CDT
--- OUTSIDE RECORDS SUMMARY | 2019-04-03 10:53 | XMS REPORT | Clinical Summary ---
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 Lump or mass in breast SKIN LESION 709.9 Active Karen Castro APRN Unspecified disorder of skin and subcutaneous tissue Health screening V70.0 Active Eugenio HERNANDEZ Routine general medical examination at a health care facility Medication List Medication Instructions Start Date Stop Date Generic Name NDC Status Provider Patient Instruction MULTIVITAMINS TABS 1 pill by mouth daily MULTIPLE VITAMIN 44405318493 No Longer Active Eugenio HERNANDEZ Active OMEPRAZOLE 20 MG CPDR 1 qd OMEPRAZOLE 22032233262 Active Rowdy Crum MD Active EXCEDRIN MIGRAINE 250-250-65 MG TABS 1 tab po prn ASPIRIN-ACETAMINOPHEN -CAFFEINE 23907122374 Active Karen Castro KNIFE GRINDER Active ZYRTEC ALLERGY 10 MG CAPS 1 po qd CETIRIZINE HCL 63691183327 Active S Castro KNIFE GRINDER Active BACTRIM DS 800-160 MG TAB 1 tab by mouth twice daily TRIMETHOPRIM-SULFAMETHOXAZOLE 47949597983 No Longer Active Karen Castro KNIFE GRINDER Active ALPRAZOLAM 0.5 MG TAB 1/2 to one tab q 8 hr prn anxiety ALPRAZOLAM 39917621868 No Longer Active S Matthew KNIFE GRINDER Active PROMETHAZINE-CODEINE 6.25-10 MG/5ML SYRP 1 tsp by mouth every 8 hours prn cough PROMETHAZINE-CODEINE 26762696013 No Longer Active Karen Castro KNIFE GRINDER Active BACTRIM DS 800-160 MG TAB 1 tab by mouth twice daily TRIMETHOPRIM-SULFAMETHOXAZOLE 38433267594 No Longer Active S Matthew KNIFE GRINDER Active CHANTIX STARTING MONTH ROGER 0.5 MG X 11 & 1 MG X 42 TABS 0.5mg daily for 3 days , then 0.5mg BID for 4 days, then 1mg BID VARENICLINE TARTRATE 09599759576 No Longer Active S Castro KNIFE GRINDER Active TRIAMCINOLONE ACETONIDE 0.1 % CREA apply twice daily to affected area for two weeks TRIAMCINOLONE ACETONIDE 13809811281 No Longer Active S Castro KNIFE GRINDER Active TRIAMCINOLONE ACETONIDE 0.1 % CREA apply twice daily to affected area for two weeks TRIAMCINOLONE ACETONIDE 0.1 % CREA 2100056 TRIAMCINOLONE ACETONIDE Inactive CHANTIX STARTING MONTH ROGER [...] hours prn cough PROMETHAZINE-CODEINE 6.25-10 MG/5ML SYRP 775726 PROMETHAZINE-CODEINE Inactive ALPRAZOLAM 0.5 MG TAB 1/2 to one tab q 8 hr prn anxiety ALPRAZOLAM 0.5 MG TAB 269195 ALPRAZOLAM Inactive BACTRIM DS 800-160 MG TAB [...] dipstick Negative Negative sodium, serum 141 mmol/L 813-304 3815/03/14 potassium, serum 4.8 mmol/L 3.5-5.2 chloride, serum [...] 1.10 mg/dL 0.00-1.00 cholesterol, serum 239 mg/dL 833-735 1159/03/14 triglyceride, serum, fasting 189 mg/dL 30-200 HDL [...] 76-181 Encounters Code Encounter Date Provider Facility CPT-47426 Level 3 Est. Patient 17:41:56 CDT Eugenio HERNANDEZ [facility] CPT-21041 Level 3 Est. Patient 16:43:12 CDT Karen Castro [facility] CPT-76035 Level 3 Est. Patient 14:06:28 CDT Karen Castro [facility] CPT-49551 Level 3 Est. 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 Patient 13:51:23 CDT Karen Castro [facility] CPT-75681 Level 3 Est. Patient 15:22:39 SALES ROUTE DRIVER HELPER Karen Smith Castro [facility] CPT-21667 Level 3 Est. Patient 16:10:58 SALES ROUTE DRIVER HELPER Korey Sanchez MD [facility] Procedures Code Procedure Name Date Entry Date Standard Description CPT-67979 Venipuncture Draw Fee 17:04:16 CDT CPT-41345 Postop F/U Visit 14:49:17 CDT CPT-000 Give PPD 16:43:12 CDT CPT-OV Office Visit 16:25:32 CDT CPT-30217 TB Tubersol 15:46:06 CDT
--- OUTSIDE RECORDS SUMMARY | 2019-04-03 10:53 | XMS REPORT | Clinical Summary ---
Author Author Admin, VIC Organization [facility] Address Unknown Phone Allergies, Adverse Reactions, Alerts [...] BREAST MASS, LEFT 611.72 Active [place] Gilman BAILIFF Lump or mass in breast SKIN LESION 709.9 Active Karen Castro APRN Unspecified disorder of skin and subcutaneous tissue Health screening V70.0 Active Eugenio HERNANDEZ Routine general medical examination at a health care facility Medication List Medication Instructions Start Date Stop Date Generic Name NDC Status Provider Patient Instruction MULTIVITAMINS TABS 1 pill by mouth daily MULTIPLE VITAMIN 46724058084 No Longer Active Eugenio HERNANDEZ Active OMEPRAZOLE 20 MG CPDR 1 qd OMEPRAZOLE 47173166832 Active Rowdy Crum MD Active EXCEDRIN MIGRAINE 250-250-65 MG TABS 1 tab po prn ASPIRIN-ACETAMINOPHEN -CAFFEINE 12113544938 Active Karen Castro OPERATIONS SUPPORT SPECIALIST Active ZYRTEC ALLERGY 10 MG CAPS 1 po qd CETIRIZINE HCL 39980025056 Active S Castro OPERATIONS SUPPORT SPECIALIST Active BACTRIM DS 800-160 MG TAB 1 tab by mouth twice daily TRIMETHOPRIM-SULFAMETHOXAZOLE 50203598104 No Longer Active Karen Castro OPERATIONS SUPPORT SPECIALIST Active ALPRAZOLAM 0.5 MG TAB 1/2 to one tab q 8 hr prn anxiety ALPRAZOLAM 04019448792 No Longer Active S Matthew OPERATIONS SUPPORT SPECIALIST Active PROMETHAZINE-CODEINE 6.25-10 MG/5ML SYRP 1 tsp by mouth every 8 hours prn cough PROMETHAZINE-CODEINE 89370899256 No Longer Active Karen Castro OPERATIONS SUPPORT SPECIALIST Active BACTRIM DS 800-160 MG TAB 1 tab by mouth twice daily TRIMETHOPRIM-SULFAMETHOXAZOLE 26472094277 No Longer Active S Matthew OPERATIONS SUPPORT SPECIALIST Active CHANTIX STARTING MONTH ROGER 0.5 MG X 11 & 1 MG X 42 TABS 0.5mg daily for 3 days , then 0.5mg BID for 4 days, then 1mg BID VARENICLINE TARTRATE 99202838358 No Longer Active S Castro OPERATIONS SUPPORT SPECIALIST Active TRIAMCINOLONE ACETONIDE 0.1 % CREA apply twice daily to affected area for two weeks TRIAMCINOLONE ACETONIDE 15081677812 No Longer Active S Castro OPERATIONS SUPPORT SPECIALIST Active TRIAMCINOLONE ACETONIDE 0.1 % CREA apply twice daily to affected area for two weeks TRIAMCINOLONE ACETONIDE 0.1 % CREA 3790202 TRIAMCINOLONE ACETONIDE Inactive CHANTIX STARTING MONTH ROGER [...] hours prn cough PROMETHAZINE-CODEINE 6.25-10 MG/5ML SYRP 020938 PROMETHAZINE-CODEINE Inactive ALPRAZOLAM 0.5 MG TAB 1/2 to one tab q 8 hr prn anxiety ALPRAZOLAM 0.5 MG TAB 664568 ALPRAZOLAM Inactive BACTRIM DS 800-160 MG TAB [...] dipstick Negative Negative sodium, serum 141 mmol/L 817-460 9863/03/14 potassium, serum 4.8 mmol/L 3.5-5.2 chloride, serum [...] 1.10 mg/dL 0.00-1.00 cholesterol, serum 239 mg/dL 114-413 1978/03/14 triglyceride, serum, fasting 189 mg/dL 30-200 HDL [...] 76-181 Encounters Code Encounter Date Provider Facility CPT-32117 Level 3 Est. Patient 17:41:56 CDT Eugenio HERNANDEZ [facility] CPT-12423 Level 3 Est. Patient 16:43:12 CDT Karen Castro [facility] CPT-82968 Level 3 Est. Patient 14:06:28 CDT Karen Castro [facility] CPT-89524 Level 3 Est. 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 Patient 13:51:23 CDT Karen Castro [facility] CPT-67189 Level 3 Est. Patient 15:22:39 BASIC SCIENCES PROFESSOR Karen Smith Castro [facility] CPT-61311 Level 3 Est. Patient 16:10:58 BASIC SCIENCES PROFESSOR Korey Sanchez MD [facility] Procedures Code Procedure Name Date Entry Date Standard Description CPT-79044 Venipuncture Draw Fee 17:04:16 CDT CPT-89326 Postop F/U Visit 14:49:17 CDT CPT-000 Give PPD 16:43:12 CDT CPT-OV Office Visit 16:25:32 CDT CPT-77335 TB Tubersol 15:46:06 CDT
--- OUTSIDE RECORDS SUMMARY | 2019-04-03 10:53 | XMS REPORT | Continuity of Care Document ---
Author Organization Unknown Address Unknown Allergies Active Description Code Type Severity Reaction Onset Reported/Identified Relationship to Patient Clinical Status Yes NO KNOWN DRUG ALLERGIES UNKNOWN NO KNOWN DRUG ALLERG Medications There is no data. Problems Date Dx Coded Attending Type Code Diagnosis Diagnosed By 11/26/2017 CRUZ JONAS W 599.0 URINARY TRACT INFECTION, SITE NOT SPECIFIED 11/26/2017 JONASCRUZ MONTEJO W N39.0 URINARY TRACT INFECTION, SITE NOT SPECIFIED 11/26/2017 JONASCRUZ MONTEJO W 599.0 URINARY TRACT INFECTION, SITE NOT SPECIFIED 11/26/2017 JONAS, CRUZ W N39.0 URINARY TRACT INFECTION, SITE NOT SPECIFIED 11/26/2017 JONASCRUZ MONTEJO W 599.0 URINARY TRACT INFECTION, SITE NOT SPECIFIED 11/26/2017 JONAS, CRUZ W N39.0 URINARY TRACT INFECTION, SITE NOT SPECIFIED 05/14/2018 JONAS, CRUZ W 401.0 MALIGNANT ESSENTIAL HYPERTENSION 05/14/2018 JONAS, CRUZ W I10 ESSENTIAL (PRIMARY) HYPERTENSION 05/14/2018 PRITESH, CRUZ W 300.00 ANXIETY STATE, UNSPECIFIED 05/14/2018 JONAS, CRUZ W 401.0 MALIGNANT ESSENTIAL HYPERTENSION 05/14/2018 JONAS, CRUZ W 782.3 EDEMA 05/14/2018 JONAS, CRUZ W F41.9 ANXIETY DISORDER, UNSPECIFIED 05/14/2018 JONAS, CRUZ W I10 ESSENTIAL (PRIMARY) HYPERTENSION 05/14/2018 JONAS, CRUZ W R60.0 LOCALIZED EDEMA 05/14/2018 JONAS, CRUZ W 300.00 ANXIETY STATE, UNSPECIFIED 05/14/2018 JONAS, CRUZ W 401.0 MALIGNANT ESSENTIAL HYPERTENSION 05/14/2018 JONAS, CRUZ W 782.3 EDEMA 05/14/2018 JONAS, CRUZ W F41.9 ANXIETY DISORDER, UNSPECIFIED 05/14/2018 JONAS, CRUZ W I10 ESSENTIAL (PRIMARY) HYPERTENSION 05/14/2018 CRUZ JONAS R60.0 LOCALIZED EDEMA 01/28/2019 CRUZ JONAS V76.10 BREAST SCREENING, UNSPECIFIED 01/28/2019 CRUZ JONAS Z12.39 ENCOUNTER FOR OTHER SCREENING FOR MALIGNANT NEOPLASM OF BREAST 01/28/2019 CRUZ JONAS V76.10 BREAST SCREENING, UNSPECIFIED 01/28/2019 CRUZ JONAS Z12.39 ENCOUNTER FOR OTHER SCREENING FOR MALIGNANT NEOPLASM OF BREAST 02/24/2019 CRUZ JONAS 793.80 ABNORMAL MAMMOGRAM, UNSPECIFIED 02/24/2019 CRUZ JONAS R92.8 OTHER ABNORMAL AND INCONCLUSIVE FINDINGS ON DIAGNOSTIC IMAGING OF BREAST 02/24/2019 CRUZ JONAS 793.80 ABNORMAL MAMMOGRAM, UNSPECIFIED 02/24/2019 CRUZ JONAS R92.8 OTHER ABNORMAL AND INCONCLUSIVE FINDINGS ON DIAGNOSTIC IMAGING OF BREAST Procedures There is no data. Results Test Result Range Thyroid Stimulating Hormone - 04/30/17 10:22 TSH 1.78 mIU/mL 0.32-5.00 Urine Culture - 10/19/17 15:05 PRELIM CULTURE RESULTS 50,000-100,000 Gram Positive Group B Strep Cultured FINAL CULTURE RESULTS 50,000-100,000 Gram Positive Group B Strep Cultured; No Further Workup done CULTURE SOURCE [id number]\ Urine Culture - 11/26/17 11:39 PRELIM CULTURE RESULTS 50,000-100,000 Gram Positive FANNY / ID to Follow MEDIA PLATED Setup at 11:40 on 11/26/2017 CULTURE SOURCE [id number]\ Sensi - 11/26/17 11:39 FINAL CULTURE RESULTS Streptococcus agalactiae (Group B) (Isolate 1 ) Ampicillin/Sulbactam <=8/4 Ampicillin <=2 Amoxicillin/K Clavulanate <=4/2 Ceftriaxone <=8 Clindamycin >4 Cefoxitin Screen N/R Ciprofloxacin <=1 Daptomycin <=0.5 Erythromycin 1 Nitrofurantoin <=32 Gentamicin N/R Gentamicin Synergy Screen N/R Inducible Clindamycin N/R Levofloxacin <=1 Linezolid <=1 Moxifloxacin <=0.5 Oxacillin <=0.25 Penicillin <=0.03 Rifampin <=1 Streptomycin Synergy N/R Synercid <=0.5 Trimethoprim/ Sulfamethoxazole <=0.5/9.5 Tetracycline >8 Vancomycin 0.5 Thyroid Stimulating Hormone - 05/14/18 09:00 TSH 2.19 mIU/mL 0.32-5.00 BMP - 11/20/18 13:37 Anion Gap 16 6-14 BUN 25 mg/dL 5-25 Calcium 10.0 mg/dL 8.3-10.4 Chloride 104 mmol/L 95-114 CO2 26 mEq/L 22-33 Creat 1.02 mg/dL 0.50-1.50 eGFR 57 mL/min/1.73m2 >59 Glucose 83 mg/dL 70-110 Osmo 296 280-295 Potassium 4.0 mmol/L 3.5-5.3 Sodium 142 mmol/L 134-148 Encounters ACCT No. Visit Date/Time Discharge Status Pt. Type Provider Facility Loc./Unit Complaint [id number] 02/24/2019 09:52:00 02/24/2019 23:59:00 DIS Outpatient CRUZ JONAS [id number] 01/28/2019 08:59:00 01/28/2019 23:59:00 DIS Outpatient CRUZ JONAS [id number] 11/20/2018 13:35:00 11/20/2018 23:59:00 DIS Outpatient CRUZ JONAS [id number] 05/14/2018 13:45:00 05/14/2018 23:59:00 DIS Outpatient CRUZ JONAS [id number] 11/26/2017 11:38:00 11/26/2017 23:59:00 DIS Outpatient CRUZ JONAS [id number] 10/19/2017 15:04:00 10/19/2017 23:59:00 DIS Outpatient CRUZ JONAS [id number] 04/30/2017 10:17:00 Document Registration
[2019-04-03] MEDS ORDERED: BUP/EPI 0.5% 1:200,000 (SENSORCAINE) 30 ML VIAL ONE (11:20)
[2019-04-03] MEDS ORDERED: LIDOCAINE 1% INJ 20 ML 20 ML VIAL ONE (11:20)
[2019-04-03] MEDS ORDERED: LIDOCAINE PF 2% 5 ML (XYLOCAINE) VIAL ONE (11:35)
[2019-04-03] MEDS ORDERED: proPOfol 200 MG/20 ML (DIPRIVAN) VIAL IV ONE ×2 (11:35→12:29)
[2019-04-03] MEDS ORDERED: DEXAMETHASONE 10 MG/ML (DECADRON) 1 ML VIAL ONE (11:35)
[2019-04-03] MEDS ORDERED: ONDANSETRON 4 MG/2 ML (SDV) Z0FRAN ONE ×3 (11:35→13:33)
[2019-04-03] MEDS ORDERED: SEVOFLURANE (ULTANE) 15 ML INHAL SOLN ONE ×4 (11:35→12:51)
[2019-04-03] MEDS ORDERED: fentaNYL INJECTION 100 MCG/2 ML AMP ONE (11:36)
[2019-04-03] MEDS ORDERED: MIDAZOLAM 2 MG/2 ML (VERSED) VIAL ONE (11:36)
[2019-04-03] MEDS ORDERED: ROCURONIUM 10 MG/ML 5 ML SYRINGE IV ONE (12:24)
[2019-04-03] MEDS ORDERED: SUCCINYLCHOLINE INJ 100 MG/5 ML SYR ONE (12:24)
--- NOTE | 2019-04-03 12:58 | Progress Note-Pre Operative ---
Pre-Operative Progress Note H&P Reviewed The H&P was reviewed, patient examined and no changes noted. Date Seen by Provider: April 03, 2019 Time Seen by Provider: 12:00 Date H&P Reviewed: April 03, 2019 Time H&P Reviewed: 12:00 Pre-Operative Diagnosis: left breast mass MIRA MENDEZ DO April 03, 2019 12:58
--- NOTE | 2019-04-03 12:59 | Progress Note-Post Operative ---
Post-Operative Progess Note Surgeon (s)/Food Supervisor (s) Surgeon MIRA MENDEZ DO Food Supervisor: na Pre-Operative Diagnosis left breast mass Post-Operative Diagnosis same Procedure & Operative Findings Date of Procedure 04/03/19 Procedure Performed/Findings wire localized left excisional breast biopsy Anesthesia Type gen Estimated Blood Loss Estimated blood loss (mL): min Specimens/Packing Specimens Removed left breast mass MIRA MENDEZ DO April 03, 2019 12:59
[2019-04-03] MEDS ORDERED: ACHD5005 PO (13:00)
--- NOTE | 2019-04-03 13:01 | Discharge Inst-Simple/Standard ---
Discharge Inst-Standard Discharge Medications New, Converted or Re-Newed RX: RX on Chart Patient Instructions/Follow Up Plan of Care/Instructions/FU: 2 weeks Pura Activity as Tolerated: No Discharge Diet: Regular Diet Other Inst to Patient Follow up Appt: Make appointment for 2 week. Instructions: No lifting greater than 10 pounds. No strenuous activity. May shower in 24 hours, no tub bath or soaking. Use incentive spirometer at home as directed. No Smoking Skin/Wound Care: May remove bandages in 24 hours. You have special glue it will fall off on its own. Symptoms to Report: Appetite Changes, Extremity Discoloration, Numbness/Tingling, Swelling Increased , Bleeding Excessive, Eyesight Changes, Pain Increased, Urine Color Change, Constipation(Persistent), Fever over 101 degree F, Pain/Pressure in chest, Urinating Difficulty, Cough Up/Vomit Blood, Heart Beat Irreg/Pounding, Pain/ Pressure in jaw, Vaginal Bleeding Increase, Cramps in feet or legs, Lightheadedness, Pain/Pressure in shoulder, Diarrhea(Persistent), Memory Changes Suddenly, Questions/Concerns, Weight gain consecutive days, Dizziness/ Fainting, Nausea/Vomiting, Shortness of Breath, Weight gain over 2 pounds If questions or concerns contact your physician Or seek help at emergency department. MIRA MENDEZ DO April 03, 2019 13:01
[2019-04-03] MEDS ORDERED: GLYCOPYRROLATE 0.2 MG/ML (ROBINUL) 2 ML VIAL ONE (13:02)
[2019-04-03] MEDS ORDERED: NEOSTIGMINE 1 MG/ML 5 ML SYRINGE ONE (13:02)
[2019-04-03] MEDS ORDERED: morphine INJ 10 MG/ML 1ML (SYR OR VIAL) ONE (13:15)
[2019-04-03] MEDS: ONDANSETRON 4 MG/2 ML (SDV) Z0FRAN IVP PRN ×2 (13:22→13:39)
[2019-04-03] MEDS ORDERED: morphine INJ 10 MG/ML 1ML (SYR OR VIAL) IVP ONE (13:45)
[2019-04-03] MEDS ORDERED: HYDROmorphone 2 MG/ML VIAL (DILAUDID) IV ONE (13:45)
--- NOTE | 2019-04-03 13:53 | Anesthesia-General Post-Op ---
General Patient Condition Mental Status/LOC: Same as Preop Cardiovascular: Satisfactory Nausea/Vomiting: Absent Respiratory: Satisfactory Pain: Controlled Complications: Absent Post Op Complications Complications None Follow Up Care/Instructions Patient Instructions None needed. Anesthesia/Patient Condition Patient Condition Patient is doing well, no complaints, stable vital signs, no apparent adverse anesthesia problems. No complications reported per nursing. [place] [facility] [place]: Yes GENOVEVA CAREY CRNA April 03, 2019 13:52
--- NOTE | 2019-04-03 17:51 | Diagnostic Imaging Report ---
INDICATION: Status post left breast lumpectomy. EXAMINATION: Lumpectomy specimen was submitted. FINDINGS: In the specimen the hookwire is present. A lobulated density is identified at coordinates F and G and 5 and 6. A clip is located within the density as well. IMPRESSION: Left breast specimen radiograph, as described. Dictated by: Dictated on workstation # [id number]
--- NOTE | 2019-04-03 21:00 | OPERATIVE REPORT ---
DATE OF SERVICE: 04/03/2019 PREOPERATIVE DIAGNOSIS: Left breast mass. POSTOPERATIVE DIAGNOSIS: Left breast mass. PROCEDURE: Wire localized left excisional breast biopsy. SURGEON: Mira Neves DO. ANESTHESIA: General. ESTIMATED BLOOD LOSS: Minimal. COMPLICATIONS: None. INDICATIONS: The patient is a 49-year-old female with abnormality by mammogram. 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 The patient wished to have excisional biopsy performed. She understands risks and benefits and wishes to proceed. Consent was signed and on the chart. DESCRIPTION OF PROCEDURE: The patient was taken to the operating suite. She was prepped and draped in sterile fashion. Timeout was performed. Incision was made medial to the wire that is exposed. The wire was then able to be dissected from the skin into the incision and filled. Cautery was used to dissect circumferentially around the wire down until it was completely removed and the biopsy base was then amputated with cautery. The wire was then slowly partially removed from the specimen. The specimen was then oriented and sent for radiology. Radiology demonstrated the prior clip to be removed within the specimen along with the wire. The wound was then irrigated with copious amounts of sterile water. No evidence of any bleeding. Hemostasis had been achieved. The subcutaneous tissues were then reapproximated using 3-0 Vicryl. Skin was then closed using 4-0 Monocryl in a running subcuticular fashion. The area was then washed and dried and Skin Affix was placed over the incision. The patient tolerated procedure well without any complications. She was taken to recovery room in stable condition. RECOMMENDATIONS: The patient will follow up in 2 weeks to discuss pathology results. Job ID: [id number] DocumentID: [id number] Dictated Date: 04/03/2019 16:40:08 International Freight Forwarder Date: 04/03/2019 20:59:49 Dictated By: MIRA NEVES DO
--- NOTE | 2019-04-09 15:06 | RADIOLOGY REPORT ---
NAME: SCOT JONAS [facility] REC#: [id number] PT STATUS: [facility] : 1970 PHYSICIAN: MIRA MENDEZ DO ADMIT DATE: 04/03/19[place] [place] S[place] Date of Exam:04/03/[address] PDEV BRST 1ST LT W/G INDICATION: Left breast mass. Patient presents for ultrasound-guided hookwire placement prior to surgical removal. PROCEDURE: Patient was brought to the procedure room and placed on the bed in a supine position. Ultrasound imaging over the left breast was performed to evaluate appropriate entry site. The complex cystic mass at 2 o'clock location in the left breast, 2 cm from the nipple, was again visualized. The left breast was prepped and draped in the usual sterile fashion. A small amount of 1% lidocaine was utilized for local anesthesia. A hookwire needle was advanced and placed through the lesion at the 2 o'clock location. Hookwire was then placed through the needle and deployed. Needle was removed. Hookwire was affixed to the patient's skin. Patient tolerated the procedure well. IMPRESSION: Successful hookwire placement through the lesion at the 2 o'clock location of the left breast, 2 cm from the nipple. Dictated by: Dictated on workstation # [id number] Dict: 04/03/19 1026 Trans: 04/04/19805 [facility] [id number] Interpreted by: COURTNEY GARIBAY MD Electronically signed by: COURTNEY GARIBAY MD 04/04/19 0806 [facility]
== END 2019-04-03 15:20 | disposition home or self-care (01) ==
LOC: SDC 08:44
PROVIDERS: ATTEND Surgery
DX: N60.42 Mammary duct ectasia of left breast (principal); N60.32 Fibrosclerosis of left breast; I10 Essential (primary) hypertension; K21.9 Gastro-esophageal reflux disease without esophagitis; E66.01 Morbid (severe) obesity due to excess calories; Z68.41 Body mass index [BMI] 40.0-44.9, adult; Z79.899 Other long term (current) drug therapy
CPT/HCPCS: 19083; 19285; 76098; 76942; 87081

== ENCOUNTER 2019-06-05 17:58 | Emergency (ER) | payer BC | END 2019-06-05 20:14 | disposition home or self-care (01) | LOC: ER 17:58 ==

== ENCOUNTER → 2019-08-18 | Outpatient (CLI) | payer BC ==
[~2019-08-18] MED LIST changes: +CYCL10TA9 PO; +LEVO500T2 PO; +METH4TAB PO
--- NOTE | 2019-08-18 09:41 | Diagnostic Imaging Report ---
PROCEDURE: US Thyroid. TECHNIQUE: Multiple real-time grayscale images were obtained of the thyroid in various projections. INDICATION: The previous thyroid ultrasound performed on 01/20/2019 noted that the gland was borderline enlarged and that there were 2 small nodules in the left lobe. On this study the thyroid gland does not measure as prominently as on the prior exam. The right lobe is estimated 4.2 x 1.3 x 1.6, while the left lobe is estimated 4.1 x 1.3 x 1.4 cm (normal gland size 4-5 by 2 x 2 cm.) There is a 0.5 x 0.4 x 0.3 cm hypoechoic nodule in the superior pole of the left lobe and a 1.0 x 0.9 x 0.7 cm nodule with increased echogenicity in the inferior pole. On the prior exam these nodules measures 0.7 x 0.4 x 0.3 cm and 1.3 x 0.8 x 0.9 cm. Since these nodules have not changed adversely, I do suspect that they are benign. The right lobe of the thyroid remains fairly homogeneous. IMPRESSION: The thyroid gland does not measure as prominently as on the prior exam and the 2 nodules in the left lobe seen previously have not changed adversely. Consequently they are most likely benign. Even so, it may prove worthwhile to have a short-term (six-month) followup thyroid ultrasound examination for continued evaluation. Dictated by: Dictated on workstation # [id number]
== END ==
LOC: RAD 07:45
PROVIDERS: ATTEND Family Medicine
DX: E04.2 Nontoxic multinodular goiter (principal)
CPT/HCPCS: 76536

== ENCOUNTER → 2020-02-18 | Outpatient (CLI) | payer BC ==
[~2020-02-18] MED LIST changes: -CETI10TA20 PO; +CETI10TA21 PO
--- NOTE | 2020-02-18 10:50 | Diagnostic Imaging Report ---
INDICATION: Status post left breast lumpectomy with benign result. Patient presents for follow-up. CORRELATION is made with prior mammogram from 01/28/2019. 2-D and 3-D bilateral diagnostic mammography was performed. Scattered fibroglandular densities are identified bilaterally. There are post surgical changes in the upper and outer aspects of the left breast anterior depth. The previously noted nodule at this location has been surgically removed. There does appear to be irregular density at the surgical site, likely owing to scarring. There are several benign nodules in the left breast which remain stable. No new mass is seen. No malignant appearing microcalcifications are identified. Axillae are unremarkable. IMPRESSION: BI-RADS 3 Post surgical changes in the left breast. Additional 6 month follow-up to show continued stability of the surgical site is recommended. The right breast is unremarkable. Dictated by: Dictated on workstation # [id number]
== END ==
LOC: RAD 09:17
PROVIDERS: ATTEND Family Medicine
DX: Z09 Encounter for follow-up examination after completed treatment for conditions other than malignant neoplasm (principal); R92.8 Other abnormal and inconclusive findings on diagnostic imaging of breast
CPT/HCPCS: 77066

== ENCOUNTER → 2020-09-06 | Outpatient (CLI) | payer BC ==
[~2020-09-06] MED LIST changes: -CETI10TA21 PO; +CETI10TA49 PO
--- NOTE | 2020-09-06 14:43 | Diagnostic Imaging Report ---
EXAMINATION: Limited ultrasound of the left breast. INDICATION: Left breast pain. FINDINGS: The diagnostic mammogram performed prior to this study noted scar formation in the upper outer aspect of the left breast but failed to show any sign of malignancy or of an acute abnormality. On this exam, there does seem to be a tiny cluster of cysts in the 12 o'clock position in the area of the patient's pain. These cysts have a generally benign appearance. These cysts do appear different than the multilobulated cystic mass that was biopsied on 03/13/2019. There is no solid mass to suggest malignancy and there is no sign of an abscess. IMPRESSION: 1. There are a few small benign-appearing cysts in the 12 o'clock position of the left breast. There is no evidence for malignancy or for an acute abnormality. 2. The patient should have her annual bilateral mammogram on schedule in February 2021. ACR BI-RADS Category 2: Benign findings. Dictated by: Dictated on workstation # [id number]
--- NOTE | 2020-09-06 20:38 | Diagnostic Imaging Report ---
EXAM: Diagnostic left mammogram INDICATION: Left breast pain COMPARISON: This study was compared to the prior exams of 02/18/2020, 03/13/2019 and 01/28/2019. At this time, the patient does complain of pain in the upper outer quadrant of the left breast. The patient did undergo a biopsy of the left breast on 04/03/2019. The results of the biopsy failed to show any sign of malignancy. On this study there is still scar formation in the biopsy site. This seems similar to the prior exam of 02/18/2020. There is no primary or secondary sign of malignancy noted and the overall appearance of the left breast has not changed significantly otherwise. IMPRESSION: 1. The scar formation in the left breast seen previously is again evident and no different. There is no evidence for malignancy or for an acute abnormality. 2. Ultrasound is pending for further study. ACR BI-RADS Category 0: Incomplete. (Needs additional imaging evaluation). Result letter will be mailed to the patient. Note: At least 10% of breast cancer is not imaged by mammography. Dictated by: Dictated on workstation # [id number]
== END ==
LOC: RAD 12:45
PROVIDERS: ATTEND Family Medicine
DX: N60.02 Solitary cyst of left breast (principal); L90.5 Scar conditions and fibrosis of skin
CPT/HCPCS: 76642; 77065; G0279

== ENCOUNTER → 2020-09-16 | Outpatient (CLI) | payer BC ==
--- NOTE | 2020-09-16 10:06 | Diagnostic Imaging Report ---
PROCEDURE: US Thyroid. TECHNIQUE: Multiple real-time grayscale images were obtained of the thyroid in various projections. INDICATION: Thyroid nodules The prior thyroid ultrasound exam of 08/18/2019 noted 2 nodules in the left lobe of the thyroid. These nodules appeared stable compared to the prior study of 01/20/2019. On this exam the nodule again evident on this study did not appear to have changed significantly. The more prominent nodules in the inferior pole of the left lobe near the isthmus and measures 1.0 x 0.7 x 0.9 cm are classified as TI-RADS 3 nodule. The other much smaller nodules in the superior pole of the left lobe. This has a benign appearance as well as probably TI-RADS 2-3. The right lung remains relatively homogeneous and the thyroid gland itself is not enlarged. IMPRESSION: The overall appearance of the thyroid gland is stable when compared to the prior exam. Specifically the nodules in the left lobe appear similar. Most likely they are benign. A six-month followup exam would be recommended to establish two-year stability of these nodules. Dictated by: Dictated on workstation # [id number]
== END ==
LOC: RAD 08:00
PROVIDERS: ATTEND Family Medicine
DX: E04.2 Nontoxic multinodular goiter (principal)
CPT/HCPCS: 76536

== ENCOUNTER → 2021-02-17 | Outpatient (CLI) | payer BC ==
--- NOTE | 2021-02-17 11:30 | Diagnostic Imaging Report ---
PROCEDURE: US Thyroid. TECHNIQUE: Multiple real-time grayscale images were obtained of the thyroid in various projections. INDICATION: Follow-up of thyroid nodule on the left. Comparison with 09/16/2020 exam. FINDINGS: The right lobe measures 4.6 x 1.7 x 1.9 cm. The left lobe measures 5.2 x 1.5 x 1.7 cm. There is a well-circumscribed slightly hyperechoic nodule with anechoic center in the lower pole measuring approximately 1.8 x 1 cm. There are no associated calcifications. There is an additional hypoechoic well-circumscribed nodule which is oval in the upper lobe measuring 7 x 4 mm. There are 2 small cysts present as well. Isthmus measures 4 mm. IMPRESSION: Stable appearing nodules within the left lobe of the thyroid since the previous exam. Continued sonographic surveillance recommended. TI-RADS 3 Dictated by: Dictated on workstation # [id number]
--- NOTE | 2021-02-17 14:50 | Diagnostic Imaging Report ---
INDICATION: Routine screening. COMPARISON: 02/18/2020 and 01/28/2019. TECHNIQUE: 2D and 3D bilateral screening mammography was performed with CAD. FINDINGS: Scattered fibroglandular densities are identified bilaterally. Numerous circumscribed nodular densities in the left breast are noted, most consistent with cysts. Small nodular densities in the retroareolar right breast are also noted which appear to be stable and likely owing to cysts. There are benign calcifications present. No spiculated mass or malignant appearing microcalcifications are seen. The axillae are unremarkable. IMPRESSION: No mammographic features suspicious for malignancy are identified. ACR BI-RADS Category 2: Benign findings. Result letter will be mailed to the patient. Note: At least 10% of breast cancer is not imaged by mammography. Dictated by: Dictated on workstation # [id number]
== END ==
LOC: RAD 08:00
PROVIDERS: ATTEND Family Medicine
DX: Z12.31 Encounter for screening mammogram for malignant neoplasm of breast (principal); E04.2 Nontoxic multinodular goiter
CPT/HCPCS: 76536; 77063; 77067

== ENCOUNTER → 2022-03-06 | Outpatient (CLI) | payer BC ==
[~2022-03-06] MED LIST changes: -CITA40TA11 PO; +CITA40TA13 PO; +CYCL10TA25 PO; -CYCL10TA9 PO
--- NOTE | 2022-03-06 13:28 | Diagnostic Imaging Report ---
INDICATION: Left breast pain. COMPARISON: Correlation is made with the diagnostic mammogram from earlier this same day. FINDINGS: Interrogation of the area of pain in the outer left breast was performed. No sonographic abnormality is identified. No solid or cystic mass is detected. IMPRESSION: No sonographic abnormality is detected at the area of pain in the outer left breast. ACR BI-RADS Category 1: Negative. Dictated by: Dictated on workstation # [id number]
--- NOTE | 2022-03-06 14:15 | Diagnostic Imaging Report ---
PROCEDURE: US Thyroid. TECHNIQUE: Multiple real-time grayscale images were obtained of the thyroid in various projections. INDICATION: Thyroid nodules. COMPARISON: 02/17/2021 and 08/18/2019 and 01/20/2019. FINDINGS: The right lobe of the thyroid gland measures 4.8 x 1.6 x 1.8 cm. It maintains a homogeneous echotexture without discrete suspicious nodule. The left lobe of the thyroid gland measures 5.1 x 1.2 x 1.7 cm. A 0.5 cm round circumscribed anechoic cystic nodule with minimal internal echoes is again seen within the inferior pole of the left lower lobe, stable from the prior exam. A 1.0 x 0.9 cm hyperechoic solid nodule with peripheral hypoechoic halo is again identified and not significantly changed since prior exams, dating back to at least 2018. Ovoid circumscribed spongiform hypoechoic nodule within the medial aspect of the left thyroid lobe is present measuring 0.7 x 0.7 x 0.4 cm, stable from the prior examination. No new left thyroid nodules. Stable mild thickening of the isthmus. IMPRESSION: Stable left-sided thyroid nodules without new thyroid nodule. This includes an unchanged TI-RADS 3, 1.0 cm nodule. Follow-up ultrasound is recommended in one year to ensure stability. Dictated by: Dictated on workstation # [id number]
--- NOTE | 2022-03-06 16:29 | Diagnostic Imaging Report ---
INDICATION: Tenderness in the left breast. COMPARISON: 12/08/2020 and 02/18/2020. TECHNIQUE: 2D and 3D bilateral diagnostic mammography was performed with CAD. FINDINGS: Scattered fibroglandular densities are noted bilaterally. Nodular densities in the left breast are stable. No spiculated mass or malignant-appearing microcalcifications are seen. There are occasional benign calcifications noted. The axillae are unremarkable. IMPRESSION: No mammographic features suspicious for malignancy are identified. Even so, directed sonographic interrogation of the area of tenderness in the outer left breast is recommended and will be performed today. ACR BI-RADS Category 0: Incomplete. (Needs additional imaging evaluation). Result letter will be mailed to the patient. Note: At least 10% of breast cancer is not imaged by mammography. Dictated by: Dictated on workstation # [id number]
== END ==
LOC: RAD 11:30
PROVIDERS: ATTEND Nurse Practitioner Family
DX: E04.1 Nontoxic single thyroid nodule (principal); N64.4 Mastodynia; R92.8 Other abnormal and inconclusive findings on diagnostic imaging of breast
CPT/HCPCS: 76536; 76642; 77066; G0279; 77062

== ENCOUNTER → 2023-03-02 | Outpatient (CLI) | payer BC ==
--- NOTE | 2023-03-02 10:29 | Diagnostic Imaging Report ---
INDICATION: Routine screening. Comparison is made with prior mammogram from 03/06/2022 and 02/17/2021. 2-D and 3-D bilateral screening mammography was performed with CAD. Scattered fibroglandular densities are identified bilaterally. Previously noted nodular densities in the left breast appear stable. No new mass or malignant-appearing microcalcifications are seen. Axillae are unremarkable. IMPRESSION: No mammographic features suspicious for malignancy are identified. ACR BI-RADS Category 2: Benign findings. Result letter will be mailed to the patient. Note: At least 10% of breast cancer is not imaged by mammography. BI-RADS Category 2 Dictated by: Dictated on workstation # [id number]
== END ==
LOC: RAD 07:05
PROVIDERS: ATTEND Family Medicine
DX: Z12.31 Encounter for screening mammogram for malignant neoplasm of breast (principal)
CPT/HCPCS: 77063; 77067